=== PATIENT | male | born 1955 | race American Indian/Alaskan Native ===

== ENCOUNTER 2018-04-29 01:18 | Emergency (ER) | payer SELFPAY ==
[2018-04-29] MEDS ORDERED: MOTRIN PO ONE (01:58)
--- NOTE | 2018-04-29 02:53 | XRay Report ---
FINAL REPORT PROCEDURE: XR FEMUR 2+V LT TECHNIQUE: LEFT femur radiographs, AP and lateral views. HISTORY: Left lateral thigh pain COMPARISON: No prior studies are available for comparison. FINDINGS: Fracture (s) and/or Dislocation(s): None . Joint space(s): Normal . Soft tissues: Normal . Bone mineralization: Normal . Foreign bodies: None . IMPRESSION: Normal Examination
[2018-04-29] MEDS ORDERED: TORADOL IM ONE (03:57)
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
[2018-04-29 05:48] VITALS: BP 138/85
== END 2018-04-29 05:48 | disposition home or self-care (01) ==
LOC: ED 01:18
DX: S70.02XA Contusion of left hip, initial encounter (principal); I10 Essential (primary) hypertension; E11.9 Type 2 diabetes mellitus without complications; F17.200 Nicotine dependence, unspecified, uncomplicated; V49.49XA Driver injured in collision with other motor vehicles in traffic accident, initial encounter; Y93.89 Activity, other specified; Y92.488 Other paved roadways as the place of occurrence of the external cause; Y99.8 Other external cause status
CPT/HCPCS: 72170; 73552; 96372; 99283; J1885